=== PATIENT | female | born 1970 | race Caucasian/White ===

== ENCOUNTER 2016-09-17 05:48 | Day surgery (SDC) | payer OTHER ==
[2016-09-10 17:32] LABS: HEMATOCRIT 41.2 % (36.0-48.0); HEMOGLOBIN 13.6 g/dL (12.0-16.0)
--- NOTE | ~2016-09-17 | OP ---
Record Of Operation [facility] [address] [place]. [address] NAME: PENNY SOLIS : 72 [place] [facility] [place] [id number] AGE: 46 ADM/REG DATE : 09/17/16 MR#: [id number] REPORT SERV DATE: 09/17/16 DICTATED BY: LINDA EDWARDS DATE: 09/17/16 REPORT STATUS : Draft TRANSCRIBED BY: MODNeida DATE: 09/17/16 DATE OF PROCEDURE: 09/17/2016 A 46-year-old female. 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 POSTOPERATIVE DIAGNOSIS: Bilateral true vocal cord. Leukoplakia. PROCEDURE: Microscopic direct laryngoscopy with tumor/vocal cord stripping. INDICATIONS: Penny Solis is a 46-year-old female with a history of significant vocal use. She is a teacher in secondary school. She also has been smoking 2 to 3 packs per day. In the clinic she had prominent pachydermic nodules at the junction of the anterior and middle thirds of the vocal cords bilaterally. Since then, she stopped her smoking, about 2 weeks, and has been reserving her voice and it has improved somewhat. I counseled her about the risks, benefits, and alternatives of this procedure. The risks include, but are not limited to pain, bleeding, infection, and scarring. I also told her that if a malignant diagnosis is returned, she will have more to do both diagnostically and therapeutically and this procedure is not designed to treat but only diagnose the issue. She voiced an understanding of those risks and signed a consent form. DESCRIPTION OF PROCEDURE: Penny was brought to the operating room and positioned on the table in a supine manner. General endotracheal anesthesia was induced with a small endotracheal tube positioned to the left side of the mouth. The table was rotated 90 degrees. The patient was prepped and draped in the usual fashion. The Dedo laryngoscope was utilized to inspect the mouth, the oropharynx, the piriform sinuses, and vallecula, all of which were normal. We got a good look at the vocal cords and used the Lewy suspension to suspend that and took a photograph. I proceeded to strip the left true vocal cord with a small cup forceps and a small scissor and this was sent for permanent section only. The right true vocal cord, which had more leukoplakic material on it, was also treated in a similar fashion. A pledget of the 1:1000 epinephrine solution was placed onto the vocal cords. No additional bleeding was identified. The larynx, trachea, and hypopharynx were thoroughly suctioned. The LTA was applied. The Dedo laryngoscope was removed and the sponge over the maxilla as well and the Lewy suspension. She was cleaned up. She was returned to anesthesia control and extubated in the operating room and moved to the recovery room in good condition. FINDINGS: 1. Bilateral true vocal cord leukoplakia. 2. Estimated blood loss 5 mL. 3. Total fluids given was 300 mL of Ringer's lactate. JOHNSON/MODL Record Of Operation [address] [address] NAME: PENNY SOLIS : 72 [place] [facility] [place] PAT#: [id number] AGE: 46 ADM/REG DATE : 09/17/16 MR#: [id number] REPORT SERV DATE: 09/17/16 DICTATED BY: LINDA EDWARDS DATE: 09/17/16 REPORT STATUS : Draft TRANSCRIBED BY: HEYDI DATE: 09/17/16 Linda Edwards M.D. / [id number] CC: Jayashree Briones D.O.
[~2016-09-17 05:48] MED LIST: CIMETIDINE300 MG PO; KAPIDEX60 MG PO; MED FOR STOMACH; SYNTHROID200 MCG PO
== END 2016-09-18 16:49 | disposition home or self-care (01) ==
LOC: SDC 05:48
PROVIDERS: Otolaryngology
PROC: 0CDT8ZZ Extraction of Right Vocal Cord, Via Natural or Artificial Opening Endoscopic (ICD-10-PCS; 2016-09-17)
PROC: 0CDV8ZZ Extraction of Left Vocal Cord, Via Natural or Artificial Opening Endoscopic (ICD-10-PCS; principal; 2016-09-17 07:15)
DX: J38.3 Other diseases of vocal cords (principal); J38.2 Nodules of vocal cords; E05.00 Thyrotoxicosis with diffuse goiter without thyrotoxic crisis or storm; F43.10 Post-traumatic stress disorder, unspecified; J45.909 Unspecified asthma, uncomplicated; K21.9 Gastro-esophageal reflux disease without esophagitis; K22.70 Barrett's esophagus without dysplasia; K44.9 Diaphragmatic hernia without obstruction or gangrene; M19.90 Unspecified osteoarthritis, unspecified site; F17.210 Nicotine dependence, cigarettes, uncomplicated; E66.01 Morbid (severe) obesity due to excess calories; Z68.41 Body mass index [BMI] 40.0-44.9, adult; Z98.51 Tubal ligation status; Z90.49 Acquired absence of other specified parts of digestive tract; Z88.0 Allergy status to penicillin; Z88.5 Allergy status to narcotic agent; Z79.899 Other long term (current) drug therapy; Z98.890 Other specified postprocedural states
CPT/HCPCS: 85014; 85018; 88305; A9270-GY; J0330; J0690; J2250; J2405; J3010